=== PATIENT | male | born 1970 | race Two or more races ===

== ENCOUNTER 2025-05-16 22:33 | Emergency (ER) | payer MEDICARE, OTHER ==
[~2025-05-16] VITALS: Ht 170.2 cm; Wt 80.7 kg
[2025-05-16 23:26] LABS: PLATELET COUNT (AUTO) 393 K/uL (150-450); RED BLOOD CELL COUNT(AUTO) 4.83 MIL/uL (4.5-6.0); RED CELL DISTRIBUTION WIDTH 20.0 % (11.5-15.0); WHITE BLOOD COUNT (AUTO) 9.6 K/uL (4.3-11.0)
[2025-05-16 23:39] LABS: INR 1.05 (0.91-1.10)
[2025-05-16 23:42] LABS: ASPARTATE AMINOTRANSFERASE 46 U/L (15-37); CALCIUM, SERUM 9.4 mg/dL (8.5-10.1); CREATININE 0.8 mg/dL (0.6-1.3); SODIUM SERUM 141 mmol/L (136-145); TOTAL PROTEIN, SERUM 8.6 g/dL (6.4-8.2); UREA NITROGEN, BLOOD 19 mg/dL (7-18)
[2025-05-17] MEDS ORDERED: ENOXAPARIN SODIUM 80 MG/0.8 ML DISP.SYRIN SQ ONE (00:17)
[2025-05-17 00:28] VITALS: BP 126/77; TEMP 98.3; O2SAT 97
== END 2025-05-17 00:29 | disposition left against medical advice (07) ==
LOC: ER 22:34 → TELE1 23:58 → UNDOADMIN 23:58 → TELE1 05-17 00:01 → TELE IN 05-17 00:23 → ER 05-17 00:29 → UNDODISIN 05-17 00:50
DX: I21.4 Non-ST elevation (NSTEMI) myocardial infarction (principal); R42 Dizziness and giddiness; I69.351 Hemiplegia and hemiparesis following cerebral infarction affecting right dominant side; I11.0 Hypertensive heart disease with heart failure; I50.9 Heart failure, unspecified; I25.10 Atherosclerotic heart disease of native coronary artery without angina pectoris; Z95.1 Presence of aortocoronary bypass graft; Z79.82 Long term (current) use of aspirin
CPT/HCPCS: 36415; 71045-TC; 80048-TC; 80076-TC; 82962-TC; 84484-TC; 85025-TC; 85730-TC; G0378; J1650